=== PATIENT | male | born 1985 | race Caucasian/White ===

== ENCOUNTER 2018-03-09 18:37 | Emergency (ER) | payer MEDICAID ==
[~2018-03-09] VITALS: Ht 182.9 cm; Wt 77.1 kg
[2018-03-09 18:37] VITALS: BP_SYST 136
[2018-03-09] MEDS ORDERED: NACL 0.9% 1,000 ML IV ONE (18:55)
[2018-03-09] MEDS ORDERED: ASPIRIN 81 MG TAB.CHEW PO ONE (19:00)
[2018-03-09] MEDS ORDERED: KETOROLAC TROMETHAMINE 30 MG VIAL IVP ONE (19:00)
== END 2018-03-09 19:27 | disposition left against medical advice (07) ==
LOC: SED 18:37
DX: Z02.89 Encounter for other administrative examinations (principal); R07.9 Chest pain, unspecified; Z53.29 Procedure and treatment not carried out because of patient's decision for other reasons
CPT/HCPCS: 71045; 93005; 99284

== ENCOUNTER 2019-06-10 17:24 | Emergency (ER) | payer MEDICAID ==
[~2019-06-10] VITALS: Ht 188 cm; Wt 79.4 kg
[2019-06-10 17:24] VITALS: BP_SYST 136
--- NOTE | 2019-06-10 17:25 | NUR ---
Patient to ER bed h1 to gown for evaluation.
--- NOTE | 2019-06-10 17:28 | NUR ---
Pt AAOx4 ambulated into ED in handcuffs escorted by law enforcement for medical clearance prior to booking due to heroin withdrawal. Pt denies pain. Last heroin use was x 10 hours ago. No other injuries/complaints per pt/noted. Will continue to monitor.
--- NOTE | 2019-06-10 17:34 | NUR ---
ROSA Layne at bedside examining patient.
[2019-06-10 17:44] VITALS: BP_SYST 136
--- NOTE | 2019-06-10 17:51 | NUR ---
Patient given written and verbal discharge instructions and verbalizes understanding. ER MD Layne discussed with patient the results and treatment provided. Patient in stable condition. ID arm band removed. No Rx given. Patient educated on pain management and to follow up with PMD. Pain Scale 0. Opportunity for questions provided and answered. Medication side effect fact sheet provided.
== END 2019-06-10 17:51 ==
LOC: SED 17:24
DX: Z02.89 Encounter for other administrative examinations (principal); F11.10 Opioid abuse, uncomplicated; F17.210 Nicotine dependence, cigarettes, uncomplicated
CPT/HCPCS: 99283